=== PATIENT | male | born 2000 | race Caucasian/White ===

== ENCOUNTER 2024-06-25 03:05 | Emergency (ER) | payer OTHER ==
[~2024-06-25] VITALS: Ht 175.3 cm; Wt 68.0 kg
[2024-06-25 03:35] VITALS: O2SAT 97
[2024-06-25 06:30] VITALS: BP 122/65; PULSE 70; RESP 16; TEMP 36.61404; O2SAT 100
[2024-06-25 06:44] LABS: CLARITY URINE CLEAR (CLEAR); COLOR URINE YELLOW (YELLOW); GLUCOSE URINE NEGATIVE (NEGATIVE); KETONES URINE 2+ (NEGATIVE); LEUKOCYTE ESTERASE URINE NEGATIVE (NEGATIVE); NITRITE URINE NEGATIVE (NEGATIVE); OCCULT BLOOD URINE NEGATIVE (NEGATIVE); PH URINE 7.5 (4.5-8.0); PROTEIN URINE NEGATIVE (NEGATIVE); SPECIFIC GRAVITY URINE 1.011 (1.005-1.030)
[2024-06-25] MEDS ORDERED: IBUP-2029 MT (06:48)
[2024-06-25] MEDS ORDERED: OMEP-265 MT (19:39)
== END 2024-06-25 06:56 | disposition home or self-care (01) ==
LOC: ER 03:05
DX: R10.9 Unspecified abdominal pain (principal)
CPT/HCPCS: 74176; 81003; 99284

== ENCOUNTER 2024-06-25 18:52 | Emergency (ER) | payer OTHER ==
[~2024-06-25] VITALS: Ht 175.3 cm; Wt 68.0 kg
[~2024-06-25 18:52] MED LIST: IBUP-2029 MT
[2024-06-25 19:02] VITALS: O2SAT 96
[2024-06-25] MEDS ORDERED: OMEP-265 MT (19:39)
[2024-06-25] MEDS: PANTOPRAZOLE 40MG DR TABLET PO ONE (19:41)
[2024-06-25 20:04] VITALS: BP 120/69; PULSE 97; RESP 18; TEMP 37.00296; O2SAT 99
== END 2024-06-25 20:05 | disposition home or self-care (01) ==
LOC: ER 18:52
DX: K21.9 Gastro-esophageal reflux disease without esophagitis (principal); Z79.899 Other long term (current) drug therapy
CPT/HCPCS: 99283

== ENCOUNTER 2024-06-27 10:50 | Emergency (ER) | payer OTHER ==
[~2024-06-27] VITALS: Ht 175.3 cm; Wt 68.0 kg
[~2024-06-27 10:50] MED LIST changes: +OMEP-265 MT
[2024-06-27 10:53] VITALS: O2SAT 98
[2024-06-27 12:04] LABS: BASOPHILS % 0.4 % (0.0-2.0); EOSINOPHILS % 0.7 % (0.0-5.0); HEMATOCRIT. 49.9 % (42.0-52.0); HEMOGLOBIN. 16.7 g/dL (14.0-18.0); LYMPHOCYTES % 16.1 % (20.0-50.0); MEAN CORPUSCULAR HEMOGLOBIN 28.1 pg (28.0-32.0); MEAN CORPUSCULAR HGB CONC 33.5 g/dL (31.0-37.0); MEAN CORPUSCULAR VOLUME 83.7 fL (80.0-94.0); MEAN PLATELET VOLUME 8.7 fl (7.4-10.4); MONOCYTES % 6.1 % (2.0-8.0); NEUTROPHILS % 76.7 % (40.0-76.0); PLATELET 248 x1000/uL (130-400); RED BLOOD CELL COUNT 5.95 mill/uL (4.7-6.1); RED CELL DISTRIBUTION WIDTH 13.3 % (11.6-14.6); WHITE BLOOD COUNT 6.4 x1000/uL (4.5-11.0)
[2024-06-27 12:19] LABS: CHLORIDE 103 mEq/L (98-107); POTASSIUM 3.6 mEq/L (3.5-5.1); SODIUM 138 mEq/L (136-145)
[2024-06-27 12:20] LABS: CALCIUM 10.1 mg/dL (8.7-10.4); CARBON DIOXIDE 27 mEq/L (21-32)
[2024-06-27 12:25] LABS: CREATININE 1.1 mg/dL (0.6-1.3); GLUCOSE 109 mg/dL (70-105); UREA NITROGEN BLOOD 11 mg/dL (9-23)
[2024-06-27 12:30] LABS: INR 1.1; PROTHROMBIN TIME 12.6 sec (9.6-11.0)
[2024-06-27 12:55] LABS: TROPONIN I HIGH SENSITIVITY < 4 ng/L (3.0-53)
[2024-06-27 13:26] LABS: CLARITY URINE CLEAR (CLEAR); COLOR URINE YELLOW (YELLOW); GLUCOSE URINE NEGATIVE (NEGATIVE); KETONES URINE 1+ (NEGATIVE); LEUKOCYTE ESTERASE URINE NEGATIVE (NEGATIVE); NITRITE URINE NEGATIVE (NEGATIVE); OCCULT BLOOD URINE NEGATIVE (NEGATIVE); PROTEIN URINE NEGATIVE (NEGATIVE); SPECIFIC GRAVITY URINE 1.008 (1.005-1.030); UROBILINOGEN URINE 0.2 E.U./dL (0.2-1.0)
[2024-06-27] MEDS ORDERED: TOPUD MT (17:03)
[2024-06-27] MEDS ORDERED: MAG355OR21 MT (17:03)
[2024-06-27 17:10] VITALS: BP 128/80; PULSE 100; RESP 18; TEMP 36.89184; O2SAT 98
== END 2024-06-27 17:10 | disposition home or self-care (01) ==
LOC: ER 11:01
DX: R10.9 Unspecified abdominal pain (principal)
CPT/HCPCS: 36415; 80048; 81003; 82270; 84484; 85025; 86850; 86900; 99283

== ENCOUNTER 2024-07-12 06:17 | Emergency (ER) | payer OTHER ==
[~2024-07-12] VITALS: Ht 170.2 cm; Wt 67.0 kg
[~2024-07-12 06:17] MED LIST changes: +MAG355OR21 MT; +TOPUD MT
[2024-07-12 06:24] VITALS: O2SAT 98
[2024-07-12] MEDS ORDERED: PANT20TA17 PO (07:24)
[2024-07-12] MEDS: MAGNESIUM/ALUMINUM HYDROXIDE/SIMETHICONE 30ML UDC PO STA (08:01)
[2024-07-12] MEDS: DICYCLOMINE 10 MG/5 ML ORAL SYR PO STA (08:01)
[2024-07-12] MEDS: ONDANSETRON 4MG ODT PO STA (08:02)
[2024-07-12 08:10] VITALS: BP 107/70; PULSE 80; RESP 18; TEMP 36.55848; O2SAT 98
== END 2024-07-12 08:07 | disposition home or self-care (01) ==
LOC: ER 06:17
DX: K21.9 Gastro-esophageal reflux disease without esophagitis (principal); F19.90 Other psychoactive substance use, unspecified, uncomplicated; Z79.899 Other long term (current) drug therapy
CPT/HCPCS: 99283; Q0162

== ENCOUNTER 2024-07-14 07:55 | Emergency (ER) | payer OTHER ==
[~2024-07-14] VITALS: Ht 175.3 cm; Wt 62.6 kg
[~2024-07-14 07:55] MED LIST changes: +PANT20TA17 PO
[2024-07-14 08:01] VITALS: O2SAT 97
[2024-07-14 08:30] LABS: BASOPHILS % 0.5 % (0.0-2.0); EOSINOPHILS % 0.3 % (0.0-5.0); HEMATOCRIT. 47.8 % (42.0-52.0); HEMOGLOBIN. 16.5 g/dL (14.0-18.0); LYMPHOCYTES % 16.4 % (20.0-50.0); MEAN CORPUSCULAR HEMOGLOBIN 29.2 pg (28.0-32.0); MEAN CORPUSCULAR HGB CONC 34.6 g/dL (31.0-37.0); MEAN CORPUSCULAR VOLUME 84.3 fL (80.0-94.0); MEAN PLATELET VOLUME 9.3 fl (7.4-10.4); MONOCYTES % 4.6 % (2.0-8.0); NEUTROPHILS % 78.2 % (40.0-76.0); PLATELET 232 x1000/uL (130-400); RED BLOOD CELL COUNT 5.66 mill/uL (4.7-6.1); RED CELL DISTRIBUTION WIDTH 13.8 % (11.6-14.6); WHITE BLOOD COUNT 4.8 x1000/uL (4.5-11.0)
[2024-07-14 08:37] LABS: CHLORIDE 107 mEq/L (98-107); POTASSIUM 4.1 mEq/L (3.5-5.1); SODIUM 141 mEq/L (136-145)
[2024-07-14 08:38] LABS: CALCIUM 10.1 mg/dL (8.7-10.4); CARBON DIOXIDE 29 mEq/L (21-32)
[2024-07-14 08:43] LABS: GLUCOSE 118 mg/dL (70-105); UREA NITROGEN BLOOD 7 mg/dL (9-23)
[2024-07-14 09:11] LABS: CLARITY URINE CLEAR (CLEAR); COLOR URINE YELLOW (YELLOW); GLUCOSE URINE NEGATIVE (NEGATIVE); KETONES URINE TRACE (NEGATIVE); LEUKOCYTE ESTERASE URINE NEGATIVE (NEGATIVE); NITRITE URINE NEGATIVE (NEGATIVE); OCCULT BLOOD URINE NEGATIVE (NEGATIVE); PH URINE 8.5 (4.5-8.0); PROTEIN URINE NEGATIVE (NEGATIVE); SPECIFIC GRAVITY URINE 1.009 (1.005-1.030)
[2024-07-14 09:20] LABS: ALANINE AMINOTRANSFERASE 12 IU/L (10-49); ALBUMIN 5.1 g/dL (3.2-4.8); ASPARTATE AMINOTRANSFERASE 14 IU/L (<34); BILIRUBIN DIRECT 0.4 mg/dL (<=3.0)
[2024-07-14 09:21] LABS: PROTEIN TOTAL 7.8 g/dL (6.0-8.3)
[2024-07-14 09:45] LABS: *AMPHETAMINES SCREEN URINE NEGATIVE (NEGATIVE); *BENZODIAZEPINES SCREEN URINE NEGATIVE (NEGATIVE)
[2024-07-14 09:46] LABS: *BARBITURATES SCREEN URINE NEGATIVE (NEGATIVE); *COCAINE SCREEN URINE NEGATIVE (NEGATIVE); CANNABINOID URINE SCREEN NEGATIVE (NEGATIVE); ECSTASY MDMA SCREEN URINE NEGATIVE (NEGATIVE); METHADONE URINE SCREEN NEGATIVE (NEGATIVE); OPIATES URINE SCREEN NEGATIVE (NEGATIVE); PHENCYCLIDINE URINE SCREEN NEGATIVE (NEGATIVE)
[2024-07-14 10:19] VITALS: BP 124/73; PULSE 88; RESP 16; TEMP 37.00296; O2SAT 97
== END 2024-07-14 10:20 | disposition home or self-care (01) ==
LOC: ER 07:55
DX: R10.9 Unspecified abdominal pain (principal); Z79.899 Other long term (current) drug therapy
CPT/HCPCS: 36415; 74176; 80048; 80076; 80305; 81003; 85025; 99284